=== PATIENT | female | born 1965 | race Caucasian/White ===

== ENCOUNTER 2017-06-06 06:54 | Emergency (ER) | payer OTHER ==
[~2017-06-06] VITALS: Ht 154.9 cm; Wt 48.5 kg
[~2017-06-06 06:54] MED LIST: ADVIL100 M3 PO; BENADRYL ALLERG25 MG PO; PERCOCET 5-3251 EACH PO; PHENERGAN 25 MG25 M1 PO; VALIUM5 MG PO
[2017-06-06 07:40] LABS: EOSINOPHILS 0.6 % (0.0-3.0); HEMOGLOBIN 9.5 gm/dL (12.0-15.0)
[2017-06-06 07:42] LABS: ABSOLUTE NEUTROPHILS 9.9 thou/uL (1.4-8.2); BASOPHILS 0.8 % (0.0-2.0); HEMATOCRIT 29.2 % (37.0-47.0); LYMPHOCYTES 12.8 % (24.0-44.0); MCH 30.3 pg (26.0-34.0); MCHC 32.5 g/dL (28.0-37.0); MCV 93.4 fL (80.0-100.0); MONOCYTES 5.8 % (1.0-8.0); PLATELET COUNT 895 thou/uL (150-400); RBC 3.12 mil/uL (4.20-5.00); RDW 15.8 % (10.5-14.5); WBC 12.4 thou/uL (4.0-11.0)
[2017-06-06 07:44] LABS: CREATININE 2.1 mg/dL (0.6-1.0); POTASSIUM 3.7 mmol/L (3.5-5.1)
[2017-06-06 07:49] LABS: MANUAL DIFF NO
[2017-06-06 07:50] LABS: ALBUMIN 3.6 g/dL (3.4-5.0); TOTAL BILIRUBIN 0.4 mg/dL (<0.1-1.0); TOTAL PROTEIN 8.9 g/dL (6.4-8.2)
[2017-06-06] MEDS ORDERED: ATIVAN1 MG PO (10:25)
== END 2017-06-06 10:58 | disposition home or self-care (01) ==
LOC: ER 06:54
PROVIDERS: Emergency Medicine
DX: K94.23 Gastrostomy malfunction (principal); D64.9 Anemia, unspecified; E86.0 Dehydration; E87.1 Hypo-osmolality and hyponatremia; C32.9 Malignant neoplasm of larynx, unspecified; F10.99 Alcohol use, unspecified with unspecified alcohol-induced disorder; Z88.5 Allergy status to narcotic agent; Y84.9 Medical procedure, unspecified as the cause of abnormal reaction of the patient, or of later complication, without mention of misadventure at the time of the procedure; Y92.89 Other specified places as the place of occurrence of the external cause

== ENCOUNTER 2017-10-20 10:39 | Emergency (ER) | payer OTHER ==
[~2017-10-20] VITALS: Ht 170.2 cm; Wt 47.2 kg
[~2017-10-20 10:39] MED LIST changes: +ATIVAN1 MG PO
[2017-10-20 10:48] VITALS: BP 126/85
[2017-10-20] MEDS ORDERED: BACTRIM DS TAB1 EACH PO (11:13)
[2017-10-20] MEDS ORDERED: NORCO 5-325 TA1 EACH PO (11:13)
[2017-10-20] MEDS ORDERED: KEFLEX500 M1 PO (11:13)
== END 2017-10-20 11:41 | disposition home or self-care (01) ==
LOC: ER 10:39
DX: L02.416 Cutaneous abscess of left lower limb (principal); Z88.5 Allergy status to narcotic agent

== ENCOUNTER 2017-10-22 09:44 | Inpatient (IN) | payer OTHER ==
[~2017-10-22] VITALS: Ht 152.4 cm; Wt 47.9 kg
--- NOTE | ~2017-10-22 | EKG ---
[address] [place] [address] ELECTROCARDIOGRAM REPORT Name: CORNELIUS SUNSHINE Room #: 216-P ADM IN M.R.#: [id number] Admission: 10/22/17 Attend Phys: Ankur Figueredo MD Discharge: Date of : 67 Report #: [id number] THIS REPORT FOR: //name// [facility] Test Date: 2017-10-23 Test Time: 18:01:52 Pat Name: CORNELIUS SUNSHINE Department: Room: 216 Gender: F Weekend Receptionist: Emmy DEMPSEY : 1965 Requested By: Ankur Figueredo Order Number: [id number] MD: Rohan Mukherjee Measurements Intervals [place] Rate: 120 P: 82 TX: 132 QRS: 73 QRSD: 82 T: 58 QT: 293 QTc: 414 Interpretive Statements Sinus tachycardia Low voltage, extremity and precordial leads Compared to ECG 10/22/2017 10:30:20 No significant changes Electronically Signed On 10-24-2017 8:12:28 DYE WEIGHER HELPER by Rohan Mukherjee [email or web address] <ELECTRONICALLY SIGNED> By: Rohan Mukherjee MD, MERGED WITH [facility] 10/24/17811 00 00 Rohan Mukherjee MD, MERGED WITH [facility] /EPI
--- NOTE | ~2017-10-22 | HC ---
[facility] [place] [address] CONSULTATION Name: CORNELIUS SUNSHINE Room #: 216-P ADM IN M.R.#: [id number] Admission: 10/22/17 Attend Phys: Ankur Figueredo MD Discharge: Date of : 67 Report #: [id number] THIS REPORT FOR: //name// CC: Ankur Dennis FAM unknown REQUESTING PHYSICIAN: Ankur Figueredo M.D. REASON FOR CONSULTATION: Recurrent oral cancer. HISTORY OF PRESENT ILLNESS: The patient is a 52-year-old female, originally from [place], [place], who attended [employer], who was diagnosed about last November with a, what sounds like a, tongue or oral cancer. It sounds like she had concurrent chemo and radiation therapy with Dr. Allen and radiation therapy at [facility]. It sounds like the chemo was maybe completed around February. She is sort of difficult to understand and does not remember it quite well. It sounds like it recurred maybe 2 months ago and she has been on a medication called Opdivo for about 2 months. She feels that during this time, the lymph nodes in her neck have gotten bigger and she is having more oral pain. The patient presents with several-day history of worsening pain around her mouth and also nausea and vomiting and having a hard time keeping her hydration up. She also had been in the ER for an incision and drainage of her left hip wound several days ago. At this time, she denies any fevers, diarrhea, constipation, blood in her urine or stool, dysuria or skin rash. She has lost about 55 pounds in the last 8 months. She does have a feeding tube and she uses about 5 cans of Jevity daily. 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 She also has a recent small abscess of her left hip. Also, history of maybe chronic kidney disease. Also the PEG feeding tube. FAMILY HISTORY: Mother and father without illnesses, has 2 brothers and 1 sister, no children. SOCIAL HISTORY: Currently, I believe, lives on the [place] , I need to clarify that. She reports that she is a nonsmoker; alcohol maybe up to a year ago. No street drugs. She is disabled. 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 LABORATORY DATA: Here her lab tests have included a BUN of 28 and a creatinine of 1.5 today. Glucose 117. Transaminases were normal. Alkaline phosphatase 90. Albumin was 3.4 yesterday before hydration. Alcohol level back on [address] [address] CONSULTATION Name: MIKALA SUNSHINERay Ly Room #: 216-P [facility] IN M.R.#: [id number] Admission: 10/22/17 Attend Phys: Ankur Figueredo MD Discharge: Date of : 67 Report #: [id number] 07/06/2010 was 434, not drawn recently. CBC showed a white count of 24.1 today; hemoglobin 7.1, had been 8.3 yesterday and platelet count of 490,000 with 94% segment neutrophils. U/A is nonacute. RADIOLOGIC STUDIES: Include a chest x-ray that showed a right lower lobe mass measuring 3.5 cm and a left lower lobe mass measuring [address] of the neck showed findings concerning for ill-defined infiltrative neoplastic process involving the floor of mouth, oropharynx and hypopharynx. The necrotic-appearing bilateral cervical lymph nodes identified. There is bone destruction involving the right aspect of the hyoid bone. MEDICATIONS: At this time include, hydromorphone p.r.n., Lovenox 40 mg at bedtime subq, Zofran q. 6h. IV p.r.n., lorazepam IV p.r.n., GI cocktail and oxycodone 30 mg q. 4. p.o. p.r.n. She also was on metronidazole q. 8h. PHYSICAL EXAMINATION: GENERAL: The patient appears her stated age. She is a slightly ill-appearing, middle-aged white female with slightly darker skin coloration from illness. She has changes from her neck, consistent with her past radiation therapy. VITAL SIGNS: Her height is 5 feet; at one place, it is reported 5 foot 7; we will need to clarify with her. Weight is 47.8 kilograms or 105 pounds. Recent blood pressure is 146/81, respirations 18, pulse 114 and afebrile at 98. MOOD: She is pleasant, conversant, little hard to understand because of her tongue difficulties from her cancer. HEENT: She does have some swollen lymph nodes, especially on the left neck, but also woody consistency of the neck, consistent with past radiation therapy. Oropharynx, it is hard to open her mouth. There does appear to be some slight swelling, maybe some slight thrush. LUNGS: Clear. HEART: Regular rate. ABDOMEN: Has a PEG tube in place. She has a scaphoid abdomen. No masses. EXTREMITIES: Without clubbing, cyanosis. The patient also asked about dental work and I told her that is outpatient. ASSESSMENT AND PLAN: 1. Recurrent head and neck cancer. on Opdivo, seems to be progressing. Would suggest follow up as scheduled with Dr. Kera Allen for other treatment options. 2. Mouth pain. Agree with Lortab. Could also provide Lortab Elixir as needed. 3. Nutrition. We would consider restarting Jevity for hydration and nutrition. 4. Nausea. Treat oral infection, we would consider Zofran ODT; could also use Reglan Elixir q. 6 hours p.r.n. per PEG tube. 5. Anemia. We will check iron panel tests to see if the patient is iron deficient. Also check an erythropoietin level as this could be contributing. 6. Renal insufficiency, slightly lower, but still elevated for this emaciated [facility] [address] [place] [address] CONSULTATION Name: MIKALA SUNSHINERay Ly Room #: 216-P [facility] IN .R.#: [id number] Admission: 10/22/17 Attend Phys: Ankur Figueredo MD Discharge: Date of : 67 Report #: [id number] young person at 1.5. 7. Left hip abscess that has been incised and drained. Defer to others. <ELECTRONICALLY SIGNED> By: Mike House MD 10/23/17 2118 0944 1113 Mike House MD /nt
--- NOTE | ~2017-10-22 | EKG ---
[address] [place] [address] ELECTROCARDIOGRAM REPORT Name: JONGMIKALARay Ly Room #: 216-P [facility] IN .R.#: [id number] Admission: 10/22/17 Attend Phys: Ankur Figueredo MD Discharge: Date of : 67 Report #: [id number] THIS REPORT FOR: //name// [facility] ED Test Date: 2017-10-22 Test Time: 10:30:20 Pat Name: CORNELIUS SUNSHINE Department: Room: 216 Gender: F Church Official: RENNY : 1965 Requested By: Reji Liu Order Number: [id number] MD: Rome Singh Measurements Intervals [place] Rate: 104 P: 66 TX: 125 QRS: 64 QRSD: 64 T: 61 QT: 315 QTc: 415 Interpretive Statements Sinus tachycardia Low voltage, extremity leads Compared to ECG 05/20/2010 03:36:15 Low QRS voltage now present Sinus rhythm no longer present Electronically Signed On 10-22-2017 19:23:10 QUENCHING CAR OPERATOR by Rome Singh [email or web address] <ELECTRONICALLY SIGNED> By: Rome Singh MD 10/22/17 1923 1030 1030 Rome Singh MD /EPI
[~2017-10-22 09:44] MED LIST changes: +BACTRIM DS TAB1 EACH PO; +KEFLEX500 M1 PO; +NORCO 5-325 TA1 EACH PO
[2017-10-22 09:45] VITALS: BP 128/86
[2017-10-22] MEDS ORDERED: OPDIVO40 MG/4 ML PO (09:51)
[2017-10-22 10:52] LABS: HEMATOCRIT 24.6 % (37.0-47.0); HEMOGLOBIN 8.3 gm/dL (12.0-15.0); MCH 28.7 pg (26.0-34.0); MCHC 33.8 g/dL (28.0-37.0); MCV 84.9 fL (80.0-100.0); PLATELET COUNT 558 thou/uL (150-400); RDW 14.1 % (10.5-14.5); WBC 20.3 thou/uL (4.0-11.0)
[2017-10-22 11:05] LABS: ANION GAP 6 mmol/L (7-16); BUN 37 mg/dL (7-18); CHLORIDE 91 mmol/L (98-107); CO2 33 mmol/L (21-32); CREATININE 1.6 mg/dL (0.6-1.0); GLUCOSE 108 mg/dL (74-106); POTASSIUM 4.4 mmol/L (3.5-5.1); SODIUM 130 mmol/L (136-145)
[2017-10-22 11:13] LABS: ALBUMIN 3.4 g/dL (3.4-5.0); LIPASE 100 U/L (73-393); SGOT 13 U/L (15-37); SGPT 23 U/L (30-65); TOTAL BILIRUBIN 0.2 mg/dL (<0.1-1.0); TOTAL PROTEIN 8.6 g/dL (6.4-8.2); TROPONIN-I < 0.04 ng/mL (<0.06)
[2017-10-22 11:34] LABS: ABSOLUTE NEUTROPHILS 19.3 thou/uL (1.4-8.2); ANISOCYTOSIS 1+; METAMYELOCYTES 1 %
[2017-10-22 11:47] LABS: URINE BILIRUBIN NEGATIVE (Negative); URINE BLOOD NEGATIVE (Negative); URINE CLARITY CLEAR; URINE COLOR YELLOW; URINE GLUCOSE-RANDOM* NEGATIVE (Negative); URINE KETONES NEGATIVE (Negative); URINE LEUKOCYTES-REFLEX NEGATIVE (Negative); URINE NITRITE-REFLEX NEGATIVE (Negative); URINE PROTEIN (DIPSTICK) NEGATIVE (Negative); URINE SPECIFIC GRAVITY <= 1.005 (1.005-1.035); URINE UROBILINOGEN 0.2 E.U./dl (0.2-1.0)
[2017-10-22 14:40] VITALS: BP 136/78
[2017-10-22 15:56] VITALS: BP 149/81
[2017-10-22 19:47] VITALS: BP 135/76
[2017-10-22 23:42] VITALS: BP 142/96
[2017-10-23 04:12] VITALS: BP 146/81
[2017-10-23 04:40] LABS: HEMATOCRIT 21.2 % (37.0-47.0); HEMOGLOBIN 7.1 gm/dL (12.0-15.0); MCH 28.6 pg (26.0-34.0); MCHC 33.3 g/dL (28.0-37.0); RBC 2.47 mil/uL (4.20-5.00); WBC 24.1 thou/uL (4.0-11.0)
[2017-10-23 04:50] LABS: CALCIUM 9.4 mg/dL (8.5-10.1); CREATININE 1.5 mg/dL (0.6-1.0); POTASSIUM 4.6 mmol/L (3.5-5.1)
[2017-10-23 10:11] LABS: % SATURATION 12 % (20-39); IRON 26 ug/dL (50-170); TIBC 218 ug/dL (250-450)
[2017-10-23 10:18] LABS: ABSOLUTE RETIC COUNT 0.0418 10^6/uL; OBSERVED RETIC COUNT 1.71 % (0.6-2.6)
[2017-10-23 10:38] LABS: FERRITIN 414 ng/mL (8-252)
[2017-10-23 11:10] LABS: FOLIC ACID > 40.0 ng/mL (8.6-58.9)
[2017-10-23 19:45] VITALS: BP 138/87
[2017-10-24 03:33] LABS: HEMOGLOBIN 6.8 gm/dL (12.0-15.0); RDW 13.9 % (10.5-14.5); WBC 20.7 thou/uL (4.0-11.0)
[2017-10-24 03:34] LABS: HEMATOCRIT 20.6 % (37.0-47.0); MCH 28.3 pg (26.0-34.0); MCV 85.8 fL (80.0-100.0); RBC 2.4 mil/uL (4.20-5.00)
[2017-10-24 04:30] VITALS: BP 130/84
[2017-10-24 07:30] VITALS: BP 129/88
[2017-10-24 11:45] VITALS: BP 122/87
[2017-10-24 11:58] VITALS: BP 119/72; BP 122/84
[2017-10-24 15:55] VITALS: BP 119/80
[2017-10-24 19:15] VITALS: BP 147/85
[2017-10-25 04:11] LABS: ABSOLUTE NEUTROPHILS 16.4 thou/uL (1.4-8.2); BASOPHILS 0.4 % (0.0-2.0); EOSINOPHILS 1.1 % (0.0-3.0); LYMPHOCYTES 3.8 % (24.0-44.0); MCH 29.7 pg (26.0-34.0); MCHC 34.5 g/dL (28.0-37.0); MCV 85.9 fL (80.0-100.0); MONOCYTES 4.8 % (1.0-8.0); PLATELET COUNT 384 thou/uL (150-400); POLYS 89.9 % (36.0-66.0); RBC 2.68 mil/uL (4.20-5.00); WBC 18.3 thou/uL (4.0-11.0)
[2017-10-25 04:20] VITALS: BP 129/86
[2017-10-25 07:05] VITALS: BP 129/84
[2017-10-25] MEDS ORDERED: HYDROCODONE-ACE15 ML PER TUBE (10:15)
[2017-10-25] MEDS ORDERED: ATIVAN1 MG PO (10:15)
[2017-10-25] MEDS ORDERED: [UNRECOGNIZED DRUG - OTHER] PO (10:15)
[2017-10-25 10:40] VITALS: BP 129/84
[2017-10-25 10:54] VITALS: BP 129/84
[2017-10-25 11:39] VITALS: BP 129/84
== END 2017-10-25 12:00 | disposition home or self-care (01) | DRG 871 ==
LOC: ER 09:44 → EROBS 12:29 → 2N 15:13 → ENTRNSPT 10-25 11:49 → EDTRNSPTSTS 10-25 11:52 → 2N 10-25 12:00
PROVIDERS: Hospitalist; Internal Medicine Hematology & Oncology; Physician Assistant
PROC: 30233N1 Transfusion of Nonautologous Red Blood Cells into Peripheral Vein, Percutaneous Approach (ICD-10-PCS; principal; 2017-10-24)
DX: A41.9 Sepsis, unspecified organism (principal); E43 Unspecified severe protein-calorie malnutrition; N17.9 Acute kidney failure, unspecified; L02.416 Cutaneous abscess of left lower limb; C79.89 Secondary malignant neoplasm of other specified sites; C76.0 Malignant neoplasm of head, face and neck; N18.9 Chronic kidney disease, unspecified; B37.9 Candidiasis, unspecified; D64.9 Anemia, unspecified; C14.0 Malignant neoplasm of pharynx, unspecified; C02.9 Malignant neoplasm of tongue, unspecified; D72.829 Elevated white blood cell count, unspecified; R13.10 Dysphagia, unspecified; Z68.20 Body mass index [BMI] 20.0-20.9, adult; Z93.1 Gastrostomy status; Z88.6 Allergy status to analgesic agent
CPT/HCPCS: 10081